=== PATIENT | male | born 2000 | race African-American/Black ===

== ENCOUNTER 2023-02-18 17:29 | Emergency (ER) | payer OTHER ==
[~2023-02-18] VITALS: Ht 193 cm; Wt 167.8 kg
[~2023-02-18 17:29] MED LIST: SULF1TAB48 MT
[2023-02-18 17:42] VITALS: TEMP 98.2; O2SAT 99
[2023-02-18] MEDS ORDERED: SULF1TAB48 MT (20:25)
[2023-02-18] MEDS ORDERED: CEPH500C2 MT (20:25)
[2023-02-18 20:38] VITALS: BP 151/79; PULSE 92; RESP 17
== END 2023-02-18 20:43 | disposition home or self-care (01) ==
LOC: ER 17:29
DX: L02.211 Cutaneous abscess of abdominal wall (principal); L03.311 Cellulitis of abdominal wall; J45.909 Unspecified asthma, uncomplicated
CPT/HCPCS: 99283

== ENCOUNTER 2024-06-27 14:11 | Emergency (ER) | payer OTHER ==
[~2024-06-27] VITALS: Ht 182.9 cm; Wt 78.0 kg
[~2024-06-27 14:11] MED LIST changes: +CEPH500C2 MT
[2024-06-27 14:12] VITALS: BP 151/87; PULSE 98; RESP 18; TEMP 37.1; O2SAT 97
== END 2024-06-27 17:25 | disposition home or self-care (01) ==
LOC: ER 14:11
DX: J06.9 Acute upper respiratory infection, unspecified (principal)
CPT/HCPCS: 99283